=== PATIENT | female | born 1985 | race Caucasian/White ===

== ENCOUNTER 2020-07-25 20:15 | Emergency (ER) | payer OTHER ==
[~2020-07-25 20:15] MED LIST: ASPIR 8181 MG PO; CYCLOBENZAPRINE5 MG PO; DOSS PO; GOLYTELY 40004000 ML PO; IBUPROFEN600 MG PO; IBUPROFEN800 MG PO; LAMICTAL100 MG PO; LAMOTRIGINE200 MG PO; MECLIZINE HCL25 MG PO; MIRALAX17 GM PO; MOBIC15 MG PO; NAPROSYN500 MG PO; NORCO 5-325 TA1 EACH PO; NORFLEX 100 MG100 MG PO; ONDANSETRON ODT4 MG SL; PERCOCET 5-3251 EACH PO; PHENERGAN 12.12.5 M1 PO; PRILOSEC OTC20 MG PO; VALIUM 5 MG TAB5 MG PO; ZOFRAN4 MG PO
[2020-07-25 22:52] LABS: HEMOGLOBIN 12.9 gm/dl (12.3-15.3); RED BLOOD COUNT 4.25 M/UL (4.00-5.10); WHITE BLOOD COUNT 7.6 K/UL (4.5-11.0)
[2020-07-25 23:17] LABS: BUN/CREATININE RATIO 17 (0-10)
[2020-07-26] MEDS ORDERED: MEDROL DOSEPAK 24 MG PO (02:14)
[2020-07-26] MEDS ORDERED: Voltaren Gel 1 % TOP (02:14)
== END 2020-07-26 02:25 | disposition home or self-care (01) ==
LOC: ER1 20:15
PROVIDERS: Physician Assistant Medical
DX: M25.552 Pain in left hip (principal); R10.9 Unspecified abdominal pain; Z88.0 Allergy status to penicillin; Z88.8 Allergy status to other drugs, medicaments and biological substances
CPT/HCPCS: 80053; 81001; 84703; 85025; 99284

== ENCOUNTER 2020-07-31 20:07 | Emergency (ER) | payer OTHER ==
[~2020-07-31 20:07] MED LIST changes: +MEDROL DOSEPAK 24 MG PO; +Voltaren Gel 1 % TOP
[2020-07-31 21:10] LABS: HEMOGLOBIN 13.3 gm/dl (12.3-15.3); RED BLOOD COUNT 4.39 M/UL (4.00-5.10); WHITE BLOOD COUNT 3.7 K/UL (4.5-11.0)
[2020-07-31 21:31] LABS: BUN/CREATININE RATIO 13 (0-10)
[2020-07-31] MEDS ORDERED: VENTOLIN HFA 66.7 GM INH (22:51)
== END 2020-07-31 23:58 | disposition home or self-care (01) ==
LOC: ER1 20:07
PROVIDERS: Physician Assistant
DX: U07.1 COVID-19 (principal); Z90.49 Acquired absence of other specified parts of digestive tract; Z88.1 Allergy status to other antibiotic agents; Z88.8 Allergy status to other drugs, medicaments and biological substances
CPT/HCPCS: 71045; 80053; 81001; 82550; 82553; 83874; 83880; 84484; 85025; 85379; 85610; 85730; 87081; 87880; 93005; 96374; 99285; J1100

== ENCOUNTER 2020-11-01 00:28 | Emergency (ER) | payer OTHER ==
[~2020-11-01 00:28] MED LIST changes: +VENTOLIN HFA 66.7 GM INH
[2020-11-01] MEDS ORDERED: MACROBID 100 M100 M1 PO (03:56)
== END 2020-11-01 04:07 | disposition home or self-care (01) ==
LOC: ER1 00:28
DX: M25.552 Pain in left hip (principal); N39.0 Urinary tract infection, site not specified; Z88.0 Allergy status to penicillin; Z90.49 Acquired absence of other specified parts of digestive tract
CPT/HCPCS: 73502; 73700; 81001; 99284